=== PATIENT | male | born 1940 | race Caucasian/White ===

== ENCOUNTER 2020-07-25 02:22 | Inpatient (IN) ==
[2020-07-25] MEDS ORDERED: SODIUM CHLORIDE 0.9% 1,000 ML IV STA (02:32)
[2020-07-25] MEDS ORDERED: ONDANSETRON 4 MG/2 ML VIAL IV STA (02:32)
[2020-07-25] MEDS ORDERED: MORPHINE 4 MG/1 ML VIAL IV STA (02:32)
[2020-07-25] MEDS ORDERED: HYDROmorphone 2 MG/1 ML VIAL IV STA (02:47)
[2020-07-25 02:48] LABS: Basophils % 0.2 % (0.0-0.8); Eosinophils # 0.2 10*3/uL (0.0-0.87); Eosinophils % 1.4 % (0.00-10.9); Hemoglobin 14.1 GM/DL (14.0-18.0); Immature Granulocytes % 0.4 %; Immature Granulocytes Absolute 0.06 #; Lymphocytes # 1.6 10*3/uL (1.4-4.0); Lymphocytes % 10.5 % (21.2-54.2); Mean Corpuscular HGB Conc 33.6 GM/DL (32-36); Mean Corpuscular Volume 98.6 FL (87-102); Mean Platelet Volume 11.3 FL (9.6-12.0); Monocytes % 7.4 % (1.7-12.7); Neutrophils % 80.1 % (38.7-73.9); Platelet Count 183 T/CUMM (130-400); Red Blood Count 4.26 MC/CUMM (3.8-5.5); Red Cell Distribution Width 13.3 % (9.3-17.3); White Blood Count 14.7 T/CUMM (4-12)
[2020-07-25 03:30] LABS: Albumin 4.1 G/DL (3.4-5.0); Bilirubin,Total 0.8 MG/DL (0.2-1.0); Calcium 9.3 MG/DL (8.5-10.1); Osmolality,Calculated 284.5 MOS/KG (273-304); Total Protein 7.3 G/DL (6.4-8.2)
[2020-07-25] MEDS ORDERED: VANCOMYCIN INJ 1,000 MG in SODIUM CHLORIDE 0.9% 250 ML IV SCH (04:00)
[2020-07-25] MEDS ORDERED: LEVOFLOXACIN INJ 500 MG in PREMIX 1 EACH IV SCH (04:30)
[2020-07-25] MEDS ORDERED: LEVOFLOXACIN INJ 500 MG in PREMIX 1 EACH IV STA (04:43)
[2020-07-25] MEDS ORDERED: ONDANSETRON 4 MG/2 ML VIAL IV ONE (04:43)
[2020-07-25] MEDS: ONDANSETRON 4 MG/2 ML VIAL IV PRN ×2 (04:44→11:21)
[2020-07-25] MEDS: MORPHINE 4 MG/1 ML VIAL IV PRN ×2 (06:25→11:14)
[2020-07-25] MEDS: DEXTROSE 5% NACL 0.45% 1,000 ML IV SCH ×3 (06:34→21:30)
[2020-07-25] MEDS: PANTOPRAZOLE 40 MG VIAL IV SCH (09:29)
[2020-07-25] MEDS ORDERED: propofoL 200 MG/20 ML VIAL IV ONE (10:57)
[2020-07-25] MEDS ORDERED: ROCURONIUM 50 MG/5 ML VIAL IV ONE (10:57)
[2020-07-25] MEDS ORDERED: DEXAMETHASONE 4 MG/1 ML VIAL ONE ×2 (10:57→12:06)
[2020-07-25] MEDS ORDERED: ONDANSETRON 4 MG/2 ML VIAL ONE (10:57)
[2020-07-25] MEDS ORDERED: LIDOCAINE 2% 5 ML VIAL ONE (10:57)
[2020-07-25] MEDS ORDERED: fentaNYL 100 MCG/2 ML VIAL ONE (10:58)
[2020-07-25] MEDS: ALBUTEROL 2.5 MG/3 ML NEB RESP TX SCH ×2 (11:00→19:37)
[2020-07-25] MEDS ORDERED: LIDOCAINE 1%/EPI INJ 20 ML VIAL ONE (11:06)
[2020-07-25] MEDS ORDERED: BUPIVACAINE MPF 0.25% 30 ML VIAL ONE ×2 (11:06→12:06)
[2020-07-25 11:41] LABS: Bilirubin,Urine Negative (Negative); Blood, Urine Negative (Negative); Glucose,Urine (UA) 50 mg/dL (Negative); Ketones,Urine 5 mg/dL (Negative); Mucus,Urine Moderate /LPF (Occasional); Nitrite,Urine Negative (Negative); Protein,Urine Negative; RBC,Urine 4 /HPF (0-4); Urine Appearance CLEAR (Clear); Urine Color Yellow (Yellow); Urine Urobilinogen < 2.0 EU/DL (0.2-1.0); WBC,Urine 1 /HPF (0-6)
[2020-07-25] MEDS ORDERED: EPINEPHrine 1 MG/ML VIAL ONE (12:06)
[2020-07-25] MEDS ORDERED: LIDOCAINE 1% 5 ML VIAL ONE (12:13)
[2020-07-25] MEDS ORDERED: ALBUMIN 5% 12.5 GM/250 ML VIAL IV ONE (12:51)
[2020-07-25] MEDS ORDERED: CIPROFLOXACIN 400 MG/200 ML PREMIX IV ONE (13:01)
[2020-07-25] MEDS ORDERED: MEPERIDINE 25 MG/1 ML VIAL IV PRN (13:22)
[2020-07-25] MEDS ORDERED: HYDROmorphone 2 MG/1 ML VIAL IV PRN (13:22)
[2020-07-25] MEDS ORDERED: PROMETHAZINE INJ 25 MG in SODIUM CHLORIDE 0.9% 50 ML IV PRN (13:22)
[2020-07-25] MEDS ORDERED: diphenhydrAMINE 50 MG/1 ML VIAL IV PRN (13:22)
[2020-07-25] MEDS ORDERED: ONDANSETRON 4 MG/2 ML VIAL IV PRN (13:22)
[2020-07-25] MEDS ORDERED: ACETAMINOPHEN 1,000 MG/100 ML VIAL IV ONE (13:26)
[2020-07-25] MEDS ORDERED: SEVOFLURANE 1 UNIT/15 MINUTE INH ONE (13:27)
[2020-07-25] MEDS ORDERED: SUGAMMADEX 200 MG/2 ML VIAL IV ONE (13:27)
[2020-07-25] MEDS ORDERED: MEPERIDINE 50 MG/1 ML VIAL IV PRN (15:00)
[2020-07-26 05:58] LABS: Basophils % 0.1 % (0.0-0.8); Hematocrit 34.4 VOL% (42.0-52.0); Hemoglobin 11.5 GM/DL (14.0-18.0); Immature Granulocytes % 0.4 %; Immature Granulocytes Absolute 0.05 #; Lymphocytes # 0.9 10*3/uL (1.4-4.0); Lymphocytes % 8.2 % (21.2-54.2); Mean Corpuscular HGB Conc 33.4 GM/DL (32-36); Mean Corpuscular Volume 98.6 FL (87-102); Mean Platelet Volume 11.9 FL (9.6-12.0); Monocytes % 10.2 % (1.7-12.7); Neutrophils % 81.1 % (38.7-73.9); Platelet Count 156 T/CUMM (130-400); Red Blood Count 3.49 MC/CUMM (3.8-5.5); Red Cell Distribution Width 13.5 % (9.3-17.3); White Blood Count 11.2 T/CUMM (4-12)
[2020-07-26] MEDS: LEVOFLOXACIN INJ 500 MG in PREMIX 1 EACH IV SCH (06:06)
[2020-07-26] MEDS: DEXTROSE 5% NACL 0.45% 1,000 ML IV SCH ×3 (06:16→21:16)
[2020-07-26 06:20] LABS: Calcium 8.4 MG/DL (8.5-10.1); Potassium 3.9 MMOL/L (3.5-5.1)
[2020-07-26] MEDS: ALBUTEROL 2.5 MG/3 ML NEB RESP TX SCH ×2 (07:32→19:46)
[2020-07-26] MEDS: PANTOPRAZOLE 40 MG VIAL IV SCH (08:31)
[2020-07-26] MEDS: carvediloL 3.125 MG TABLET PO SCH (21:14)
[2020-07-27 05:14] LABS: Basophils % 0.2 % (0.0-0.8); Eosinophils # 0.3 10*3/uL (0.0-0.87); Eosinophils % 3.2 % (0.00-10.9); Hematocrit 34.9 VOL% (42.0-52.0); Hemoglobin 11.7 GM/DL (14.0-18.0); Immature Granulocytes % 0.4 %; Immature Granulocytes Absolute 0.03 #; Lymphocytes # 1.5 10*3/uL (1.4-4.0); Lymphocytes % 17.8 % (21.2-54.2); Mean Corpuscular HGB Conc 33.5 GM/DL (32-36); Mean Corpuscular Volume 98.6 FL (87-102); Mean Platelet Volume 11.4 FL (9.6-12.0); Monocytes % 14.4 % (1.7-12.7); Platelet Count 153 T/CUMM (130-400); Red Blood Count 3.54 MC/CUMM (3.8-5.5); Red Cell Distribution Width 13.6 % (9.3-17.3); White Blood Count 8.2 T/CUMM (4-12)
[2020-07-27] MEDS: LEVOFLOXACIN INJ 500 MG in PREMIX 1 EACH IV SCH (05:45)
[2020-07-27 05:51] LABS: Calcium 8.6 MG/DL (8.5-10.1); Osmolality,Calculated 278.4 MOS/KG (273-304); Potassium 3.8 MMOL/L (3.5-5.1)
[2020-07-27] MEDS: DEXTROSE 5% NACL 0.45% 1,000 ML IV SCH ×2 (06:29→13:25)
[2020-07-27] MEDS ORDERED: LEVOTHYROXINE 25 MCG TABLET PO SCH (06:30)
[2020-07-27] MEDS: ALBUTEROL 2.5 MG/3 ML NEB RESP TX SCH (07:30)
[2020-07-27] MEDS: PANTOPRAZOLE 40 MG VIAL IV SCH (08:51)
[2020-07-27] MEDS: carvediloL 3.125 MG TABLET PO SCH (08:51)
[2020-07-27 13:29] VITALS: BP 136/75
[2020-07-27] MEDS ORDERED: carvediloL 6.25 MG TABLET PO SCH (21:00)
== END 2020-07-27 13:42 | disposition home or self-care (01) | DRG 337 ==
LOC: EDBD → EDUNIT# → N.ED 02:22 → N.EDINP 04:14 → N.TELES 06:16
PROVIDERS: ADMIT Surgery; ATTEND Surgery